=== PATIENT | female | born 1995 | race Caucasian/White ===

== ENCOUNTER 2016-07-20 22:17 | Emergency (ER) | payer OTHER ==
[2016-07-20 22:31] VITALS: BP 121/79
== END 2016-07-21 00:39 | disposition home or self-care (01) ==
LOC: ED 22:17
DX: N39.0 Urinary tract infection, site not specified (principal)

== ENCOUNTER 2017-05-31 14:36 | Emergency (ER) | payer OTHER ==
[~2017-05-31] VITALS: Ht 162.6 cm; Wt 64.0 kg
[2017-05-31 14:43] VITALS: Ht 162.6 cm; Wt 64.0 kg
[2017-05-31 17:06] LABS: CALCIUM 8.7 mg/dL (8.5-10.1); CARBON DIOXIDE 24.5 mmol/L (21-32); CHLORIDE SERUM 100 mmol/L (98-107); CREATININE SERUM 0.7 mg/dL (0.6-1.0); GFR1 > 60 mL/min; GLUCOSE SERUM 93 mg/dL (74-106); POTASSIUM SERUM 3.8 mmol/L (3.5-5.1); SODIUM SERUM 138 mmol/L (136-145)
[2017-05-31 17:08] LABS: BASOPHIL % 0.5 % (0-2); PLATELET COUNT 264 x10^3mcL (130-400); RED CELL DISTRIBUTION WIDTH 13.9 % (11.5-14.5)
[2017-05-31 17:10] LABS: ALKALINE PHOSPHATASE 64 U/L (46-116); ALT/SGPT 40 U/L (14-59); AST/SGOT 24 U/L (15-37); BILIRUBIN TOTAL 0.51 mg/dL (0.20-1.00); LIPASE 96 IU/L (73-393)
[2017-05-31 17:11] LABS: TOTAL PROTEIN, SERUM 8.4 g/dL (6.4-8.2)
[2017-05-31 19:05] VITALS: BP 145/71
== END 2017-05-31 18:35 | disposition home or self-care (01) ==
LOC: ED 14:36
PROVIDERS: Emergency Medicine
DX: N12 Tubulo-interstitial nephritis, not specified as acute or chronic (principal)
CPT/HCPCS: J0696; J1885; J2405; J3490; J7030